=== PATIENT | male | born 1980 | race Caucasian/White ===

== ENCOUNTER 2018-02-18 10:53 | Emergency (ER) | payer OTHER ==
[~2018-02-18] VITALS: Ht 167.6 cm; Wt 73.9 kg
[2018-02-18 11:09] VITALS: BP 161/99
--- NOTE | 2018-02-18 11:10 | NUR ---
ARRIVAL PATIENT ARRIVED VIA POV WITH COMPLAINTS OF LEFT SIDED RIB PAIN PATIENT STATES HE WAS "WRESTLING WITH HIS LITTLE BROTHER AND THEY GOT A BIT TOO ROUGH" RR EVEN AND NON LABORED PT STATES PAIN AT 2/10
--- NOTE | 2018-02-18 11:26 | ER.PDOC ---
General Chief Complaint: Trunk Pain/Injury Stated Complaint: RIGHT SIDE INJURY TO RIBS Time seen by MD: 11:25 Source: patient Exam Limitations: no limitations History of Present Illness Initial Comments Right rib pain while playing with sibling yesterday. Where: home Location of pain/injury: chest Quality/Severity: moderate Allergies: Coded Allergies: Penicillins (Verified Allergy, Unknown, Hives, 02/18/18) Past Medical History Medical History: no pertinent history Surgical History: no surgical history Social History Smoking: less than 1 pack/day Alcohol Use: none Drug Use: none Review of Systems Constitutional: no symptoms reported Throat: no symptoms reported Respiratory: no symptoms reported Cardiovascular: see HPI Gastrointestinal: no symptoms reported Genitourinary: no symptoms reported All Other Systems: Reviewed and Negative Physical Exam General Appearance: No Apparent Distress, WD/WN Head: No Evidence of Injury Ears, Nose, Throat: Hearing Grossly Normal, No Evidence of ENT Injury, No Dental Injury Respiratory: normal breath sounds, no respiratory distress, tenderness (right lower anterior chest wall) Cardiovascular/Chest: Normal Peripheral Pulses, Regular Rate, Rhythm, No Edema , No Gallop, No JVD, No Murmur Gastrointestinal: Normal Bowel Sounds, No Organomegaly, No Pulsatile Mass, Non Tender, Soft Back: Normal Inspection, No CVA Tenderness, No Vertebral Tenderness Extremities: No Evidence of Injury, Normal Range of Motion, Non-Tender, No Pedal Edema Neurologic/Psychiatric: audit lead II-XII NML as Tested, No Motor/Sensory Deficits, Alert, Normal Mood/Affect, Oriented x 3 Skin: Normal Color, Warm/Dry Eliz Coma Score Best Eye Response: (4) Open Spontaneously Best Verbal Response: (5) Oriented Best Motor Response: (6) Obeys Commands Progress Progress CXR: No visible displaced rib fracture. Nondisplaced rib fractures are not excluded. Recommend correlation with clinical and physical findings. Right kidney stone measures 5.5 mm. Correlate for clinical findings. Departure Time of Disposition: 12:11 Disposition: 01 HOME, SELF-CARE Impression: Primary Impression: Contusion of chest wall Qualified Codes: S20.211A - Contusion of right front wall of thorax, initial encounter Condition: Stable Referrals: PCP,UNKNOWN (PCP) PRIMARY CARE PROVIDER Additional Instructions: F/U with your PCP in 1 week Duration or Time Spent with Pa: 45 mins MARIANA FROST MD Feb 18, 2018 11:26
--- NOTE | 2018-02-18 11:58 | DIREP ---
PROCEDURE:XRAY RIBS W/PA CHEST 3VWS-RT COMPARISON:None. INDICATIONS:RIGHT SIDED LOWER RIB PAIN FINDINGS: RIBS:No visible displaced rib fracture. Nondisplaced rib fractures are not excluded. Recommend correlation with clinical and physical findings. OTHER:Visualized lungs are clear. Right kidney stone measures 5.5 mm. CONCLUSION:No visible displaced rib fracture. Nondisplaced rib fractures are not excluded. Recommend correlation with clinical and physical findings. Right kidney stone measures 5.5 mm. Correlate for clinical findings. Dictated by: Alexi Batista M.D. on 02/18/2018 at 10:54 AM Read in [place]
[2018-02-18 12:15] VITALS: BP 143/84
[2018-02-18 12:25] VITALS: BP 143/84
== END 2018-02-18 12:18 | disposition home or self-care (01) ==
LOC: ER 10:53
DX: S20.211A Contusion of right front wall of thorax, initial encounter (principal); F17.210 Nicotine dependence, cigarettes, uncomplicated; Z88.0 Allergy status to penicillin; W50.0XXA Accidental hit or strike by another person, initial encounter; Y93.72 Activity, wrestling; Y92.098 Other place in other non-institutional residence as the place of occurrence of the external cause; Y99.8 Other external cause status
CPT/HCPCS: 99284; 71101-RT

== ENCOUNTER 2019-10-24 15:16 | Emergency (ER) | payer MEDICARE, OTHER ==
[~2019-10-24] VITALS: Ht 167.6 cm; Wt 65.8 kg
[2019-10-24 15:41] VITALS: BP 139/84
[2019-10-24 15:47] VITALS: BP 139/84
--- NOTE | 2019-10-24 16:08 | ER.PDOC ---
General Chief Complaint: Nausea,Vomiting,Diarrhea Stated Complaint: LEFT ANKLE PAIN Time seen by MD: 16:05 Source: patient Exam Limitations: no limitations History of Present Illness Initial Comments Left ankle pain or 9 Months. He denies injury. Where: home Severity: moderate Allergies: Coded Allergies: Penicillins (Verified Allergy, Unknown, Hives, 02/18/18) Past Medical History Medical History: no pertinent history Surgical History: no surgical history Social History Alcohol Use: heavy Drug Use: none Review of Systems Constitutional: no symptoms reported Respiratory: no symptoms reported Cardiovascular: no symptoms reported Gastrointestinal: no symptoms reported Musculoskeletal: see HPI All Other Systems: Reviewed and Negative Physical Exam General Appearance: Alert, No Apparent Distress Foot: nml inspection, non-tender, nml color/temp, skin intact Ankle: tenderness (left) Knee: nml inspection, non-tender, nml ROM, no joint swelling Thigh/Hip: nml inspection Gait: normal Neuro/Vasc/Tendon: sensation nml, motor nml, no vascular compromise, tendon function nml Head/ENT: nml inspection, pharynx nml Neck/Back: nml inspection, non-tender Abdomen: non-tender, pelvis stable Results/Orders Results/Orders Orders - MARIANA FROST MD Xr Ankle 3v Lt (10/24/19 16:01) Vital Signs Date Time Temp Pulse Resp B/P (MAP) Pulse Ox O2 Delivery O2 Flow Rate FiO2 10/24/19 15:47 98.6 97 20 139/84 (102) 98 Room Air 10/24/19 15:41 98.6 97 20 10/24/19 15:41 98.6 97 20 98 10/24/19 15:41 98.6 97 20 139/84 (102) 98 Room Air EKG/XRAY/CT/US XRAY Comments: No acute abnormality of left ankle Departure Time of Disposition: 16:47 Disposition: 01 HOME, SELF-CARE Impression: Primary Impression: Ankle pain, left Condition: Stable Referrals: PCP,UNKNOWN (PCP) PRIMARY CARE PROVIDER Additional Instructions: Ibuprofen F/U with your PCP next week Return to ED if worsening or concerns Duration or Time Spent with Pa: 30 min Problem Qualifiers Primary Impression: Ankle pain, left Chronicity: chronic Qualified Codes: M25.572 - Pain in left ankle and joints of left foot; G89.29 - Other chronic pain MARIANA FROST MD Oct 24, 2019 16:08
--- NOTE | 2019-10-24 16:26 | DIREP ---
PROCEDURE:XRAY ANKLE MIN 3VWS-LT COMPARISON:None. INDICATIONS:pain FINDINGS: BONES:Normal. JOINTS:Minimal degenerative changes. SOFT TISSUES:Mild soft tissue swelling. OTHER:No additional findings. CONCLUSION:No acute bony abnormality. Dictated by: Lily Potter MD on 10/24/2019 at 04:24 PM
== END 2019-10-24 16:56 | disposition home or self-care (01) ==
LOC: ER 15:16
DX: M25.572 Pain in left ankle and joints of left foot (principal); Z88.0 Allergy status to penicillin
CPT/HCPCS: 99283; 73610-LT

== ENCOUNTER → 2021-03-19 | Outpatient (CLI) | payer OTHER ==
[2021-03-22 08:22] LABS: HEP A AB, IgM Negative (Negative)
== END | disposition home or self-care (01) ==
LOC: LAB 15:13
PROVIDERS: ATTEND Internal Medicine
DX: Z11.4 Encounter for screening for human immunodeficiency virus [HIV] (principal)
CPT/HCPCS: 36415; 80074; 86703

== ENCOUNTER 2021-08-02 10:53 | Emergency (ER) | payer BC ==
[~2021-08-02] VITALS: Ht 167.6 cm; Wt 76.7 kg
--- NOTE | 2021-08-02 11:05 | NUR ---
ARRIVAL PRESENTED TO ED RM#5 AMBULATORY WITH C/O RIGHT HAND PAIN/INJURY THAT HAPPENED ~1-2 WEEKS AGO. WAS SEEN AT THAT TIME AT [facility] ED AND DIAGNOSED WITH FRACTURE. GIVEN NAPROXEN PRESCRIPTION, SPLINT AND WAS TO FOLLOW UP WITH ORTHO. PATIENT STATED, HE IS UNABLE TO WEAR SPLINT AT WORK. 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 PATIENT DID NOT FOLLOW UP WITH PRIMARY CARE PHYSICIAN NOR ORTHO. VS OBTAINED. DR. FROST NOTIFIED OF PATIENT ARRIVAL.
[2021-08-02 11:15] VITALS: BP_SYST 157; BP_SYST 175; BP_DIAS 89; BP_DIAS 92
[2021-08-02 11:27] VITALS: BP 133/87
--- NOTE | 2021-08-02 11:32 | ER.PDOC ---
General Chief Complaint: Extremities Stated Complaint: PAIN/RIGHT HAND Time seen by MD: 11:24 Source: patient Exam Limitations: no limitations History of Present Illness Initial Comments Patient states he has a fracture of the right hand which he sustained 1 week ago. He was seen in [facility] ED and given a splint. He was told to follow-up with an orthopedic surgeon. He has not yet done so. He is here today requesting for a note for work restriction. He told me that he punched a wall. Occurred: last week Severity: moderate Context: direct blow Location of Injury: (R) hand Modifying Factors: pain on movement Allergies: Coded Allergies: Penicillins (Verified Allergy, Unknown, Hives, 02/18/18) Past Medical History Medical History: no pertinent history Surgical History: no surgical history Family History Significant Family History: no pertinent family hx Social History Alcohol Use: occassionally Drug Use: none Review of Systems Constitutional: no symptoms reported EENTM: no symptoms reported Respiratory: no symptoms reported Cardiovascular: no symptoms reported Gastrointestinal: no symptoms reported Musculoskeletal: see HPI All Other Systems: Reviewed and Negative Physical Exam General Appearance: Alert, No Apparent Distress Hand: tenderness (right hand with mild swelling) Wrist: nml inspection, non-tender, nml ROM Neuro: sensation nml, motor nml Vascular: no vascular compromise Tendons: tendon function nml Forearm/Elbow/Arm: uninjured above wrist Skin: warm/dry Head/ENT: nml inspection, pharynx nml Neck/Back: nml inspection, non-tender Resp/CVS: no resp distress, lungs clear, heart sounds nml, reg. rate & rhythm Abdomen: non-tender, no organomegaly Results/Orders Results/Orders Vital Signs Date Time Temp Pulse Resp B/P (MAP) Pulse Ox O2 Delivery O2 Flow Rate FiO2 08/02/21 11:15 97.9 109 17 100 Progress Progress I gave Dr. Keen's office number and told patient to call his office today and follow-up with him tomorrow and he will determine what work restrictions he requires. Patient voices understanding. ER DEPART Departure Time of Disposition: 11:37 Disposition: 01 HOME / SELF CARE / HOMELESS Impression: Primary Impression: Metacarpal bone fracture Condition: Stable Referrals: LC CARRANZA PA-C (PCP) PRIMARY CARE PROVIDER Additional Instructions: Follow-up with Dr. Keen tomorrow, call for appointment time Continue ibuprofen and use of your splint Return to ED if any concerns Duration or Time Spent with Pa: 10 min Problem Qualifiers Primary Impression: Metacarpal bone fracture Encounter type: initial encounter Metacarpal bone: unspecified metacarpal Fracture type: closed Metacarpal location: unspecified portion of metacarpal Fracture morphology: unspecified fracture morphology Qualified Codes: S62.309A - Unspecified fracture of unspecified metacarpal bone, initial encounter for closed fracture MARIANA FROST MD Aug 02, 2021 11:32
== END 2021-08-02 11:43 | disposition home or self-care (01) ==
LOC: ER 10:53
DX: S62.309A Unspecified fracture of unspecified metacarpal bone, initial encounter for closed fracture (principal); F10.20 Alcohol dependence, uncomplicated; W22.01XA Walked into wall, initial encounter; Y93.89 Activity, other specified; Y92.89 Other specified places as the place of occurrence of the external cause; Y99.8 Other external cause status; Z88.0 Allergy status to penicillin
CPT/HCPCS: 99281

== ENCOUNTER 2021-10-11 22:42 | Emergency (ER) | payer BC, SELFPAY ==
[~2021-10-11] VITALS: Ht 167.6 cm; Wt 72.6 kg
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
[2021-10-11 23:31] VITALS: BP 121/53
--- NOTE | 2021-10-11 23:47 | ER.PDOC ---
General Chief Complaint: General Complaint Stated Complaint: DEHYDRATION, WEAKNESS TRAVEL OUT OF US: No Time seen by MD: 23:43 Source: patient Exam Limitations: no limitations History of Present Illness Initial Comments Patient complain that he feels dehydrated. He left from [facility] this afternoon. He was brought in by EMS with a liter of NS running. He is already feeling better. He has not been drinking water well. He also wants pain shot for chronic right knee pain. Severity: moderate Associated Symptoms: weakness Allergies: Coded Allergies: Penicillins (Verified Allergy, Unknown, Hives, 02/18/18) Past Medical History Medical History: CVA/TIA/stroke Surgical History: no surgical history Family History Significant Family History: no pertinent family hx Social History Smoking: greater than 1 pack/day Alcohol Use: occassionally Drug Use: Meth Review of Systems Constitutional: see HPI EENTM: no symptoms reported Respiratory: no symptoms reported Cardiovascular: no symptoms reported Gastrointestinal: no symptoms reported Musculoskeletal: see HPI All Other Systems: Reviewed and Negative Physical Exam General Appearance: No Apparent Distress, WD/WN Neck: Non-Tender, Full Range of Motion, Supple, Normal Inspection Respiratory: chest non-tender, lungs clear, normal breath sounds, no respiratory distress, no accessory muscle use CVS: reg rate & rhythm, no murmur, no gallop, pulses nml, nml capillary refill Gastrointestinal: Normal Bowel Sounds, No Organomegaly, No Pulsatile Mass, Non Tender, Absent bowel sounds Back: Normal Inspection, No CVA Tenderness, No Vertebral Tenderness Extremities: Normal Range of Motion, Non-Tender, Normal Inspection, No Pedal Edema, No Calf Tenderness, Other (right knee tenderness) Neurologic/Psychiatric: specimen boss II-XII NML as Tested, No Motor/Sensory Deficits, Alert, Normal Mood/Affect, Oriented x 3 Skin: Normal Color, Warm/Dry Results/Orders Results/Orders Orders - MARIANA FROST MD Basic Metabolic Panel (10/11/21 23:42) Vital Signs Date Time Temp Pulse Resp B/P (MAP) Pulse Ox O2 Delivery O2 Flow Rate FiO2 10/11/21 23:57 98.8 108 18 10/11/21 23:31 98.8 108 18 98 Laboratory Tests Test 10/11/21 23:48 Sodium Level 145 mmol/L (132-145) Potassium Level 4.3 mmol/L (3.6-5.2) Chloride Level 111.0 mmol/L (96-109) H Carbon Dioxide Level 22.6 mmol/L (20.0-32) Glucose Level 80 mg/dL (70-110) Blood Urea Nitrogen 14 mg/dL (7-18) Creatinine 0.91 mg/dL (0.59-1.40) Calcium Level 8.2 mg/dL (8.4-10.5) L Anion Gap 15.7 Estimated GFR () 110.6 (>/=60) Est GFR (CKD-EPI)(Non-Afr Togolese) 91.4 (>/=60) BUN/Creatinine Ratio 15.0 Progress Progress Chemistry show potassium of 8.2, rest of chemistry is unremarkable. Patient received a liter of fluid and Toradol. He is feeling better to go home. ER DEPART Departure Time of Disposition: 00:29 Disposition: 01 HOME / SELF CARE / HOMELESS Impression: Primary Impression: Dehydration Additional Impression: Chronic pain of right knee Condition: Improved Referrals: LC CARRANZA PA-C (PCP) PRIMARY CARE PROVIDER Additional Instructions: Push fluids Ibuprofen Follow-up with your PCP in 2 to 3 days Return to ED if worsening symptoms or concerns Duration or Time Spent with Pa: 20 min Problem Qualifiers MARIANA FROST MD Oct 11, 2021 23:47
[2021-10-11 23:57] VITALS: BP 121/53
[2021-10-12 00:11] LABS: CARBON DIOXIDE 22.6 mmol/L (20.0-32)
[2021-10-12 01:07] VITALS: BP 121/53
== END 2021-10-12 01:09 | disposition home or self-care (01) ==
LOC: ER 22:42 → EDBD 22:42 → ER 10-12 01:09
DX: G89.29 Other chronic pain (principal); E86.0 Dehydration; M25.561 Pain in right knee; F10.20 Alcohol dependence, uncomplicated; F17.210 Nicotine dependence, cigarettes, uncomplicated; F15.90 Other stimulant use, unspecified, uncomplicated; Z86.73 Personal history of transient ischemic attack (TIA), and cerebral infarction without residual deficits; Z88.0 Allergy status to penicillin
CPT/HCPCS: 36415; 80048; 99283

== ENCOUNTER 2023-05-17 17:06 | Emergency (ER) | payer SELFPAY ==
[~2023-05-17] VITALS: Ht 167.6 cm; Wt 86.2 kg
[2023-05-17 17:15] VITALS: BP 142/93; PULSE 98; RESP 18; TEMP 98.2; O2SAT 98
[2023-05-17 18:15] VITALS: BP 137/91; PULSE 95; RESP 18; TEMP 98.2; O2SAT 98
[2023-05-17 19:06] VITALS: BP 136/87; PULSE 92; RESP 18; TEMP 98.2; O2SAT 98
== END 2023-05-17 19:09 | disposition home or self-care (01) ==
LOC: ER 17:06
DX: S92.001A Unspecified fracture of right calcaneus, initial encounter for closed fracture (principal); S99.911A Unspecified injury of right ankle, initial encounter; F12.90 Cannabis use, unspecified, uncomplicated; Z86.73 Personal history of transient ischemic attack (TIA), and cerebral infarction without residual deficits; Z88.0 Allergy status to penicillin; X58.XXXA Exposure to other specified factors, initial encounter; Y93.89 Activity, other specified; Y92.89 Other specified places as the place of occurrence of the external cause; Y99.8 Other external cause status
CPT/HCPCS: 73700; 99284; 73610-RT; 73630-RT